=== PATIENT | male | born 1980 | race Hispanic/Latino ===

== ENCOUNTER 2017-01-04 13:15 | Outpatient (CLI) | payer OTHER | END 2017-01-04 13:20 | disposition short-term general hospital (02) | LOC: AMB 13:15 | DX: R07.89 Other chest pain (principal); R06.02 Shortness of breath | CPT/HCPCS: A0425; A0427 ==

== ENCOUNTER 2017-01-04 13:20 | Emergency (ER) | payer OTHER ==
[~2017-01-04] VITALS: Ht 165.1 cm; Wt 59.0 kg
[2017-01-04 13:21] VITALS: TEMP 98.4
[2017-01-04 13:46] LABS: PLATELET COUNT 353 K/uL (142-355)
[2017-01-04 13:58] LABS: POTASSIUM 3.6 mmol/L (3.6-5.2); SODIUM 136 mmol/L (136-145)
[2017-01-04 15:10] VITALS: BP 134/70
== END 2017-01-04 15:11 | disposition home or self-care (01) ==
LOC: ED 13:20
DX: K29.70 Gastritis, unspecified, without bleeding (principal); B96.81 Helicobacter pylori [H. pylori] as the cause of diseases classified elsewhere; G47.30 Sleep apnea, unspecified
CPT/HCPCS: 36415; 80053; 80307; 81000; 82550; 82553; 84484; 85027; 86318; 93005; 96360; 99284; G0479

== ENCOUNTER 2017-01-26 19:52 | Emergency (ER) | payer OTHER ==
[~2017-01-26] VITALS: Ht 165.1 cm; Wt 59.0 kg
[2017-01-26 22:02] VITALS: BP 143/85; TEMP 98.4
== END 2017-01-26 22:20 | disposition home or self-care (01) ==
LOC: ED 19:52
DX: S51.021A Laceration with foreign body of right elbow, initial encounter (principal); S21.221A Laceration with foreign body of right back wall of thorax without penetration into thoracic cavity, initial encounter; X95.01XA Assault by airgun discharge, initial encounter; Y93.89 Activity, other specified; Y92.89 Other specified places as the place of occurrence of the external cause; Y99.8 Other external cause status
CPT/HCPCS: 36415; 90471; 90715; 96365; 99284; J0696; J1885